=== PATIENT | female | born 1980 | race Two or more races ===

== ENCOUNTER 2018-03-02 07:49 | Emergency (ER) | payer OTHER ==
[~2018-03-02] VITALS: Ht 152.4 cm; Wt 53.1 kg
[2018-03-02 08:00] VITALS: BP 117/71
== END 2018-03-02 08:50 | disposition left against medical advice (07) ==
LOC: ER 07:49
DX: R22.2 Localized swelling, mass and lump, trunk (principal)
CPT/HCPCS: 71046